=== PATIENT | male | born 1955 | race Caucasian/White ===

== ENCOUNTER 2018-04-09 07:08 | Day surgery (SDC) | payer OTHER ==
[2018-04-09] MEDS ORDERED: METOCLOPRAMIDE 10 MG INJ (08:24)
[2018-04-09] MEDS ORDERED: PROPOFOL 20 ML (09:18)
[2018-04-09] MEDS ORDERED: FENTAnyl 50 MCG/ML VIAL (09:19)
[2018-04-09] MEDS ORDERED: MIDAZOLAM 1 MG/ML 2 ML INJ (09:19)
== END 2018-04-09 10:23 | disposition home or self-care (01) ==
LOC: GIL 07:08
DX: Z12.11 Encounter for screening for malignant neoplasm of colon (principal); K57.90 Diverticulosis of intestine, part unspecified, without perforation or abscess without bleeding; K64.4 Residual hemorrhoidal skin tags; K64.8 Other hemorrhoids; I10 Essential (primary) hypertension; E11.9 Type 2 diabetes mellitus without complications
CPT/HCPCS: 45380; 82962; 88305

== ENCOUNTER 2018-05-13 12:21 | Inpatient (IN) | payer OTHER ==
[2018-05-13 15:48] LABS: ADD MAN DIFF? NO
[2018-05-13] MEDS: ACETAMINOPHEN 325 MG TAB PO (15:50)
[2018-05-13 15:52] LABS: WHITE BLOOD COUNT 9.2 10^3/ul (4.8-10.8)
[2018-05-13 15:52] LABS: BASOPHIL # 0.1 10^3/ul (0.0-0.1); EOSINOPHILS # 0.1 10^3/ul (0.0-0.5); EOSINOPHILS % 1.5 % (0.0-7.0); HEMATOCRIT 46.6 % (42.0-52.0); HEMOGLOBIN 15.9 g/dl (14.0-18.0); LYMPHOCYTES # 2.1 10^3/ul (0.8-2.9); LYMPHOCYTES % 22.5 % (15.0-51.0); MEAN CORPUSCULAR HEMOGLOBIN 29.3 pg (29.0-33.0); MEAN CORPUSCULAR HGB CONC 34.1 g/dl (32.0-37.0); MEAN PLATELET VOLUME 9.8 fl (7.4-10.4); MONOCYTE # 0.8 10^3/ul (0.3-0.9); MONOCYTES % 8.9 % (0.0-11.0); NEUTROPHILS % 65.9 % (39.0-77.0); PLATELET COUNT 313 10^3/UL (140-415); RED BLOOD COUNT 5.42 10^6/ul (4.70-6.10); RED CELL DISTRIBUTION WIDTH 13.2 % (11.5-14.5)
[2018-05-13] MEDS: SOD CHLORIDE 0.9% 500 ML IV (15:52)
[2018-05-13 16:09] LABS: INR 0.94; PROTIME 12.7 Sec (11.9-14.9)
[2018-05-13 16:10] LABS: PARTIAL THROMBOPLASTIN TIME 31.2 Sec (25.0-35.0)
[2018-05-13 16:20] LABS: ANION GAP 14 (8-16); BLOOD UREA NITROGEN 17 mg/dl (7-20); CALCIUM 9.6 mg/dl (8.4-10.2); CARBON DIOXIDE 27 mmol/L (21-31); CHLORIDE 100 mmol/L (97-110); CREATININE 0.69 mg/dl (0.61-1.24); GLUCOSE 118 mg/dl (70-220); POTASSIUM 3.7 mmol/L (3.5-5.1); SODIUM 137 mmol/L (135-144)
[2018-05-13 16:32] LABS: TROPONIN-I < 0.010 ng/ml (0.000-0.120)
[2018-05-13] MEDS: niCARdipine-NS 0.1MG/ML DRIP 200 ML IV (17:11)
[2018-05-13] MEDS: IOHEXOL 100 ML (18:05)
[2018-05-13] MEDS: SOD CHLORIDE 0.9% 100 ML (18:05)
[2018-05-13] MEDS ORDERED: ALBUTEROL/IPRATROPIUM (NEB) 3 ML AMP HHN (18:30)
[2018-05-13] MEDS ORDERED: BISACODYL (EC) 5 MG TAB PO (18:30)
[2018-05-13] MEDS ORDERED: hydrALAzine 20 MG INJ IV (18:30)
[2018-05-13] MEDS ORDERED: INSULIN ASPART [NOVOLOG] 3 ML PEN SC (18:30)
[2018-05-13] MEDS ORDERED: DOCUSATE SODIUM 100 MG CAP PO (18:30)
[2018-05-13] MEDS ORDERED: MAGNESIUM HYDROXIDE 30ML CUP PO (18:30)
[2018-05-13] MEDS ORDERED: ACETAMINOPHEN 325 MG TAB PO (18:30)
[2018-05-13] MEDS ORDERED: NACL 0.9% 3 ML SYG IV (18:30)
[2018-05-13] MEDS ORDERED: GLUCAGON 1 MG INJ IM (19:30)
[2018-05-13] MEDS ORDERED: GLUCOSE GEL 15 GRAM TUBE PO ×2 (19:30)
[2018-05-13] MEDS ORDERED: DEXTROSE 50% 50 ML SYRINGE IV ×2 (19:30)
[2018-05-13] MEDS ORDERED: GLUCOSE GEL 15 GRAM TUBE BUCCAL (19:30)
[2018-05-13] MEDS: morphine 4 MG/ML VIAL IV (20:05)
[2018-05-13] MEDS: ONDANSETRON 4 MG INJ IV (20:06)
[2018-05-13] MEDS: INSULIN ASPART [NOVOLOG] 3 ML PEN SC (21:00)
[2018-05-13] MEDS: PANTOPRAZOLE 40 MG INJ IV (21:04)
[2018-05-13] MEDS: DEXTROSE 5%-0.45% NACL 1,000 ML IV (21:04)
[2018-05-13] MEDS: ALBUTEROL/IPRATROPIUM (NEB) 3 ML AMP HHN (21:52)
[2018-05-14] MEDS: HYDROCODONE/APAP (5/325) TAB PO ×2 (00:46→00:53)
[2018-05-14] MEDS: morphine 2 MG INJ IV ×5 (00:53→18:48)
[2018-05-14] MEDS: INSULIN ASPART [NOVOLOG] 3 ML PEN SC ×4 (01:00→19:30)
[2018-05-14] MEDS: ACCU-CHEK XX (02:00)
[2018-05-14] MEDS: DEXTROSE 5%-0.45% NACL 1,000 ML IV (04:23)
[2018-05-14] MEDS: PANTOPRAZOLE 40 MG INJ IV (05:58)
[2018-05-14 06:02] LABS: ADD MAN DIFF? NO
[2018-05-14 06:09] LABS: BASOPHIL # 0.1 10^3/ul (0.0-0.1); BASOPHILS % 0.7 % (0.0-2.0); EOSINOPHILS # 0.1 10^3/ul (0.0-0.5); EOSINOPHILS % 1.9 % (0.0-7.0); HEMATOCRIT 45.9 % (42.0-52.0); HEMOGLOBIN 15.5 g/dl (14.0-18.0); LYMPHOCYTES # 1.5 10^3/ul (0.8-2.9); LYMPHOCYTES % 20.5 % (15.0-51.0); MEAN CORPUSCULAR HEMOGLOBIN 29.7 pg (29.0-33.0); MEAN CORPUSCULAR HGB CONC 33.8 g/dl (32.0-37.0); MEAN CORPUSCULAR VOLUME 87.9 fl (82.0-101.0); MEAN PLATELET VOLUME 9.8 fl (7.4-10.4); MONOCYTE # 0.6 10^3/ul (0.3-0.9); MONOCYTES % 7.6 % (0.0-11.0); PLATELET COUNT 299 10^3/UL (140-415); RED BLOOD COUNT 5.22 10^6/ul (4.70-6.10); RED CELL DISTRIBUTION WIDTH 13.2 % (11.5-14.5)
[2018-05-14 06:09] LABS: WHITE BLOOD COUNT 7.2 10^3/ul (4.8-10.8)
[2018-05-14 06:44] LABS: ALANINE AMINOTRANSFERASE 51 IU/L (13-69); ALBUMIN 4.2 g/dl (3.3-4.9); ALBUMIN/GLOBULIN RATIO 1.23; ALKALINE PHOSPHATASE 77 IU/L (42-121); ANION GAP 11 (8-16); ASPARTATE AMINO TRANSFERASE 37 IU/L (15-46); BILIRUBIN,INDIRECT 0.7 mg/dl (0-1.1); BILIRUBIN,TOTAL 0.7 mg/dl (0.2-1.3); BLOOD UREA NITROGEN 13 mg/dl (7-20); CALCIUM 9.1 mg/dl (8.4-10.2); CARBON DIOXIDE 30 mmol/L (21-31); CHLORIDE 102 mmol/L (97-110); CHOL/HDL RATIO 3.6 RATIO; CHOLESTEROL 107 mg/dl (100-200); CREATININE 0.66 mg/dl (0.61-1.24); GLUCOSE 140 mg/dl (70-220); HDL CHOLESTEROL 29 mg/dl (30-78); LDL CHOLESTEROL,CALCULATED 64 mg/dl; MAGNESIUM 1.9 mg/dl (1.7-2.5); POTASSIUM 3.7 mmol/L (3.5-5.1); SODIUM 139 mmol/L (135-144); TOTAL PROTEIN 7.6 g/dl (6.1-8.1); TRIGLYCERIDES 72 mg/dl (0-149)
[2018-05-14 06:51] LABS: HEMOGLOBIN A1C 6.2 % (0-5.9)
[2018-05-14] MEDS: ALBUTEROL/IPRATROPIUM (NEB) 3 ML AMP HHN (08:00)
[2018-05-14] MEDS ORDERED: ONDANSETRON 4 MG INJ IV (17:00)
[2018-05-14] MEDS ORDERED: ACETAMINOPHEN 325 MG TAB PO (17:00)
[2018-05-14] MEDS ORDERED: morphine 2 MG INJ (17:06)
[2018-05-14] MEDS ORDERED: DEXTROSE 50% 50 ML SYRINGE IV ×2 (19:30)
[2018-05-14] MEDS ORDERED: GLUCAGON 1 MG INJ IM (19:30)
[2018-05-14] MEDS ORDERED: GLUCOSE GEL 15 GRAM TUBE BUCCAL (19:30)
[2018-05-14] MEDS ORDERED: GLUCOSE GEL 15 GRAM TUBE PO ×2 (19:30)
[2018-05-14] MEDS: ARFORMOTEROL TARTRATE 15MCG/2 ML AMP HHN (20:22)
[2018-05-14] MEDS: BUDESONIDE (NEB) 0.5MG/2ML AMP INH (20:22)
[2018-05-14] MEDS: FAMOTIDINE 20 MG TAB PO (21:00)
[2018-05-14] MEDS: metFORMIN 500 MG TAB PO (22:38)
[2018-05-14] MEDS: ATORVASTATIN 40 MG TAB PO ×2 (22:38→23:59)
[2018-05-14] MEDS: LEVETIRACETAM 500 MG TAB PO (22:39)
[2018-05-14] MEDS: CHOLECALCIFEROL 1,000 UNIT TAB PO (22:40)
[2018-05-14] MEDS: DOCUSATE SODIUM 100 MG CAP PO (23:59)
[2018-05-14] MEDS: GABAPENTIN 300 MG CAP PO (23:59)
[2018-05-15] MEDS: INSULIN ASPART [NOVOLOG] 3 ML PEN SC ×5 (00:15→20:23)
[2018-05-15] MEDS: morphine 2 MG INJ IV ×4 (00:19→21:08)
[2018-05-15] MEDS: ACCU-CHEK XX (02:00)
[2018-05-15] MEDS: CHOLECALCIFEROL 1,000 UNIT TAB PO ×2 (08:15→20:16)
[2018-05-15] MEDS: DOCUSATE SODIUM 100 MG CAP PO ×2 (08:16→20:17)
[2018-05-15] MEDS: LEVETIRACETAM 500 MG TAB PO ×2 (08:16→20:17)
[2018-05-15] MEDS: FAMOTIDINE 20 MG TAB PO ×2 (08:16→20:17)
[2018-05-15] MEDS: AMLODIPINE 5 MG TAB PO (08:16)
[2018-05-15] MEDS: TIOTROPIUM 18 MCG CAPSULE INHA DEV INH (09:00)
[2018-05-15 09:20] LABS: ADD MAN DIFF? NO
[2018-05-15 09:28] LABS: BASOPHIL # 0.1 10^3/ul (0.0-0.1); BASOPHILS % 0.7 % (0.0-2.0); EOSINOPHILS # 0.1 10^3/ul (0.0-0.5); EOSINOPHILS % 1.6 % (0.0-7.0); HEMATOCRIT 46.2 % (42.0-52.0); HEMOGLOBIN 15.3 g/dl (14.0-18.0); LYMPHOCYTES # 1.5 10^3/ul (0.8-2.9); LYMPHOCYTES % 20.1 % (15.0-51.0); MEAN CORPUSCULAR HEMOGLOBIN 29.4 pg (29.0-33.0); MEAN CORPUSCULAR HGB CONC 33.1 g/dl (32.0-37.0); MEAN CORPUSCULAR VOLUME 88.7 fl (82.0-101.0); MEAN PLATELET VOLUME 10.1 fl (7.4-10.4); MONOCYTE # 0.6 10^3/ul (0.3-0.9); MONOCYTES % 8.3 % (0.0-11.0); NEUTROPHIL # 5.2 10^3/ul (1.6-7.5); PLATELET COUNT 300 10^3/UL (140-415); RED BLOOD COUNT 5.21 10^6/ul (4.70-6.10); RED CELL DISTRIBUTION WIDTH 13.1 % (11.5-14.5)
[2018-05-15 09:28] LABS: WHITE BLOOD COUNT 7.6 10^3/ul (4.8-10.8)
[2018-05-15] MEDS: metFORMIN 500 MG TAB PO ×2 (09:32→17:32)
[2018-05-15] MEDS: LISINOPRIL 20 MG TAB PO (09:33)
[2018-05-15 10:04] LABS: ANION GAP 12 (8-16); BLOOD UREA NITROGEN 13 mg/dl (7-20); CALCIUM 9.3 mg/dl (8.4-10.2); CARBON DIOXIDE 28 mmol/L (21-31); CHLORIDE 105 mmol/L (97-110); CREATININE 0.69 mg/dl (0.61-1.24); GLUCOSE 111 mg/dl (70-220); POTASSIUM 3.8 mmol/L (3.5-5.1); SODIUM 141 mmol/L (135-144)
[2018-05-15] MEDS: ARFORMOTEROL TARTRATE 15MCG/2 ML AMP HHN ×2 (10:06→19:59)
[2018-05-15] MEDS: BUDESONIDE (NEB) 0.5MG/2ML AMP INH ×2 (10:16→19:59)
[2018-05-15 10:46] LABS: ADD UMIC NO; UR ASCORBIC ACID NEGATIVE (NEGATIVE); UR BILIRUBIN (Dip) NEGATIVE (NEGATIVE); UR BLOOD (Dip) NEGATIVE (NEGATIVE); UR CLARITY CLEAR (CLEAR); UR COLOR YELLOW (YELLOW); UR GLUCOSE (Dip) NEGATIVE (NEGATIVE); UR KETONES (Dip) NEGATIVE (NEGATIVE); UR LEUKOCYTE ESTERASE (Dip) NEGATIVE Leu/ul (NEGATIVE); UR NITRITE (Dip) NEGATIVE (NEGATIVE); UR SPECIFIC GRAVITY (Dip) 1.014 (1.003-1.030); UR TOTAL PROTEIN (Dip) NEGATIVE (NEGATIVE); UR UROBILINOGEN (Dip) 2+ mg/dL (NEGATIVE)
[2018-05-15 11:06] LABS: AMPHETAMINE/METHAMPHETAMINE Negative (NEGATIVE); BARBITURATES Negative (NEGATIVE); CANNABINOIDS Positive (NEGATIVE); COCAINE Negative (NEGATIVE)
[2018-05-15 11:14] LABS: BENZODIAZEPINES Positive (NEGATIVE); OPIATES Positive (NEGATIVE)
[2018-05-15] MEDS: GABAPENTIN 300 MG CAP PO (20:17)
[2018-05-15] MEDS: SOD CHLORIDE 0.9% 100 ML (23:07)
[2018-05-15] MEDS: IOHEXOL 100 ML (23:08)
[2018-05-16] MEDS: morphine LIQ (10 MG/5 ML) CUP PO ×3 (00:29→12:38)
[2018-05-16] MEDS: ACCU-CHEK XX (01:12)
[2018-05-16 01:15] LABS: TROPONIN-I < 0.010 ng/ml (0.000-0.120)
[2018-05-16 05:28] LABS: TROPONIN-I < 0.010 ng/ml (0.000-0.120)
[2018-05-16] MEDS: INSULIN ASPART [NOVOLOG] 3 ML PEN SC ×2 (08:00→12:00)
[2018-05-16] MEDS: metFORMIN 500 MG TAB PO (08:07)
[2018-05-16] MEDS: LEVETIRACETAM 500 MG TAB PO (08:07)
[2018-05-16] MEDS: DOCUSATE SODIUM 100 MG CAP PO (08:07)
[2018-05-16] MEDS: CHOLECALCIFEROL 1,000 UNIT TAB PO (08:08)
[2018-05-16] MEDS: FAMOTIDINE 20 MG TAB PO (08:08)
[2018-05-16] MEDS: LISINOPRIL 20 MG TAB PO (08:08)
[2018-05-16] MEDS: AMLODIPINE 5 MG TAB PO (08:08)
[2018-05-16] MEDS: BUDESONIDE (NEB) 0.5MG/2ML AMP INH (08:51)
[2018-05-16] MEDS: ARFORMOTEROL TARTRATE 15MCG/2 ML AMP HHN (08:51)
[2018-05-16] MEDS: TIOTROPIUM 18 MCG CAPSULE INHA DEV INH (09:00)
== END 2018-05-16 16:45 | disposition home or self-care (01) | DRG 64 ==
LOC: FTE 12:21 → PP2 19:34
DX: I61.1 Nontraumatic intracerebral hemorrhage in hemisphere, cortical (principal); G93.6 Cerebral edema; R55 Syncope and collapse; I10 Essential (primary) hypertension; E11.9 Type 2 diabetes mellitus without complications; J44.9 Chronic obstructive pulmonary disease, unspecified; F17.210 Nicotine dependence, cigarettes, uncomplicated
CPT/HCPCS: 36415; 70450; 70496; 70498; 70553; 71045; 72125; 73030; 80048; 80053; 80061; 80307; 81003; 82962; 83036; 83735; 84443; 84484; 85025; 85610; 85730; 93005; 93306; 93880; 94640; 94664; 97116; 97161; 97530; 99291-25